=== PATIENT | male | born 1970 | race Caucasian/White ===

== ENCOUNTER 2016-07-09 16:23 | Emergency (ER) | payer OTHER ==
[2016-07-09 18:30] VITALS: BP 143/78
--- NOTE | 2016-07-09 18:58 | UC ---
Respiratory Complaint HPI - HPI Summary HPI Summary: 46 yo male with a f/c cough/sinus pain x 3 days no v/d nausea no CP or sob arthralgias - History of Current Complaint Chief Complaint: UCGeneralIllness Stated Complaint: HEADACHES/JOINT PAIN Time Seen by Provider: 07/09/16 18:43 Hx Obtained From: Patient Onset/Duration: Gradual Onset, Lasting Days Timing: Constant Severity Initially: Mild Severity Currently: Moderate Pain Intensity: 4 Pain Scale Used: 0-10 Numeric Character: Cough: Nonproductive Aggravating Factors: Nothing Alleviating Factors: Nothing Associated Signs And Symptoms: Positive: Fever, Chills - Allergies/Home Medications Allergies/Adverse Reactions: Allergies Allergy/AdvReac Type Severity Reaction Status Date / Time Codeine Allergy Intermediate Vomiting Verified 07/09/16 18:30 Penicillins [PCN] Allergy Intermediate Vomiting Verified 07/09/16 18:30 Sulfa Antibiotics Allergy Intermediate Hives Verified 07/09/16 18:30 Cephalexin AdvReac vomiting Verified 07/09/16 18:30 and diarrhea Home Medications: Home Medications Cyclobenzaprine TAB* [Flexeril TAB*] 10 mg PO BEDTIME PRN 07/09/16 [History Confirmed 07/09/16] PMH/Surg Hx/FS Hx/Imm Hx Previously Healthy: Yes Cardiovascular History Of: Reports: Hypertension GI/ History Of: Reports: Gastroesophageal Reflux Other History Of: Negative For: Anticoagulant Therapy - Surgical History Surgical History: Yes Surgery Procedure, Year, and Place: 10/2011 - L Knee Arthroscopy. Appendectomy. L Ulna & Wrist Repair. NERVE BLOCKS--BACK. LEFT ARM NERVE WRAP IN MESH. - Family History Known Family History: Positive: Hypertension - Social History Alcohol Use: None Substance Use Type: None Smoking Status (MU): Never Smoked Tobacco - Immunization History Most Recent Influenza Vaccination: FALL 2013 Review of Systems Constitutional: Fever, Chills, Fatigue Skin: Negative Eyes: Negative ENT: Nasal Discharge Respiratory: Cough Cardiovascular: Negative Gastrointestinal: Negative Genitourinary: Negative Motor: Negative Neurovascular: Negative Musculoskeletal: Arthralgia Neurological: Negative Psychological: Negative All Other Systems Reviewed And Are Negative: Yes Physical Exam Triage Information Reviewed: Yes Appearance: Well-Appearing, No Pain Distress, Well-Nourished Vital Signs: Initial Vital Signs Temp 101 F 07/09/16 18:27 Pulse 79 07/09/16 18:27 Resp 16 07/09/16 18:27 BP 143/78 07/09/16 18:27 Pulse Ox 99 07/09/16 18:27 Vital Signs Reviewed: Yes Eyes: Positive: Conjunctiva Clear ENT: Positive: Hearing grossly normal, Pharyngeal erythema, Nasal congestion, Nasal drainage, TMs normal. Negative: Tonsillar swelling, Tonsillar exudate, Trismus, Muffled/hoarse voice Neck: Positive: Nontender, No Lymphadenopathy Respiratory: Positive: Chest non-tender, Lungs clear, Normal breath sounds, No respiratory distress, Wheezing - with forced expiration Cardiovascular: Positive: RRR, No Murmur Musculoskeletal: Positive: ROM Intact, No Edema Neurological: Positive: Alert Psychological Exam: Normal Skin Exam: Normal UC Diagnostic Evaluation - Laboratory O2 Sat by Pulse Oximetry: 99 - normal/not hypoxic Respiratory Course/Dx - Differential Dx/Diagnosis Provider Diagnoses: acute bronchitis Discharge - Discharge Plan Condition: Stable Disposition: HOME Prescriptions: Azithromycin TAB* [Zithromax TAB*] 250 mg PO DAILY #6 tab Patient Education Materials: Acute Bronchitis (ED) Referrals: Radha Allison [Primary Care Provider] - 3 Days (recheck in 3-4 days if not better) Additional Instructions: rest fluids tylenol
== END 2016-07-09 19:01 | disposition home or self-care (01) ==
LOC: UCCORT 16:23
DX: J20.9 Acute bronchitis, unspecified (principal); I10 Essential (primary) hypertension; K21.9 Gastro-esophageal reflux disease without esophagitis; Z88.0 Allergy status to penicillin; Z88.1 Allergy status to other antibiotic agents; Z88.2 Allergy status to sulfonamides; Z88.5 Allergy status to narcotic agent
CPT/HCPCS: 99212; G0463